=== PATIENT | male | born 1970 | race Caucasian/White ===

== ENCOUNTER 2024-12-26 03:41 | Emergency (ER) | payer BC, OTHER ==
[~2024-12-26] VITALS: Ht 172.7 cm; Wt 73.5 kg
[2024-12-26 06:00] LABS: PLATELET COUNT (AUTO) 126 K/uL (150-450); RED BLOOD CELL COUNT(AUTO) 4.63 MIL/uL (4.5-6.0); RED CELL DISTRIBUTION WIDTH 13.1 % (11.5-15.0); WHITE BLOOD COUNT (AUTO) 4.6 K/uL (4.3-11.0)
[2024-12-26 06:06] LABS: APPEARANCE,URINE CLEAR (CLEAR); BLOOD, URINE NEGATIVE Ery/uL (NEGATIVE); LEUKOCYTE ESTERASE ,URINE NEGATIVE (NEGATIVE); NITRITE, URINE NEGATIVE (NEGATIVE); UGLUCOSE NEGATIVE (NEGATIVE)
[2024-12-26 06:07] LABS: CALCIUM, SERUM 8.7 mg/dL (8.5-10.1); CREATININE 0.9 mg/dL (0.6-1.3); SODIUM SERUM 137 mmol/L (136-145); UREA NITROGEN, BLOOD 13 mg/dL (7-18)
[2024-12-26 06:13] LABS: AMPHETAMINE, URINE NEGATIVE (NEGATIVE); BARBITURATE, URINE NEGATIVE (NEGATIVE); BENZODIAZEPINE, URINE NEGATIVE (NEGATIVE); CANNABINOID, URINE NEGATIVE (NEGATIVE); COCCAINE, URINE NEGATIVE (NEGATIVE); OPIATE, URINE NEGATIVE (NEGATIVE)
[2024-12-26 06:19] LABS: ASPARTATE AMINOTRANSFERASE 30 U/L (15-37); NT-PRO BNP 36 pg/mL (0-125); TOTAL PROTEIN, SERUM 6.8 g/dL (6.4-8.2)
[2024-12-26 06:23] LABS: ALCOHOL, BLOOD < 3 mg/dL (0-10)
[2024-12-26 06:32] VITALS: TEMP 98.2
[2024-12-26 07:11] VITALS: BP 117/82; O2SAT 95
== END 2024-12-26 07:16 | disposition home or self-care (01) ==
LOC: ER 03:51
DX: R00.2 Palpitations (principal); R20.0 Anesthesia of skin; E78.5 Hyperlipidemia, unspecified; Z90.89 Acquired absence of other organs; Z87.438 Personal history of other diseases of male genital organs; Z87.448 Personal history of other diseases of urinary system; Z60.2 Problems related to living alone; Z79.899 Other long term (current) drug therapy
CPT/HCPCS: 36415; 71045-TC; 80053-TC; 83735-TC; 83880; 84484-TC; 85025-TC; G0480